=== PATIENT | male | born 1945 | race Caucasian/White ===

== ENCOUNTER 2023-05-23 09:11 | Emergency (ER) | payer MEDICARE, SELFPAY ==
[2023-05-23 09:12] VITALS: BP 137/80; PULSE 87; RESP 18; TEMP 35.8; O2SAT 96
[2023-05-23 09:28] VITALS: BMI 35.7
--- NOTE | 2023-05-23 10:00 | EDS_ITS ---
HPI <NERISSA Dinero - Last Filed: 05/23/23 10:33> History of Present Illness Chief Complaint: Fall Narrative Narrative: Patient was walking his dog in the yard and tripped on uneven ground landing on his right hip on May 19. He has had pain and bruising over the hip and the bruising is gradually spreading down the leg. He is able to ambulate and denies weakness numbness or tingling. He denies blood thinners. There was no head injury. He had a previous right hip replacement done in [place]. PFSH <ENRISSA Dinero - Last Filed: 05/23/23 10:33> PFSH Medical History (Updated 05/23/23 @ 10:30 by NERISSA Dinero) FH: bilateral hip replacements HTN (hypertension) Surgical History (Updated 05/23/23 @ 09:30 by Janae Parks) History of bilateral knee replacement Hx of cholecystectomy S/p bilateral shoulder joint replacement Social History Smoking Status: Never smoker ROS <NERISSA Dinero - Last Filed: 05/23/23 10:33> ROS ED ROS Narrative Neuro: Negative for motor/sensory dysfunction. Skin: Negative for wound. Musc: Positive for right hip pain, swelling, trauma. Heme: Negative for easy bruising, bleeding, lymphadenopathy. EXAM <NERISSA Dinero - Last Filed: 05/23/23 10:33> Physical Exam Narrative Exam Narrative: CONST: Patient sitting in no acute distress. EYES: Normal inspection. NECK: Normal inspection. RESP: No respiratory distress, CTAB. CVS: Regular rate and rhythm, no murmur, no gallop. Back: Normal inspection, no bruising, no midline spinal tenderness. SKIN: Color normal, no rash, warm, dry, intact. EXTREMITIES: Hematoma and tenderness over right greater trochanter with bruising extending down to the knee and very stages of healing. Full range of motion of the hip and lower extremity, no shortening or rotation, normal sensation and 2+ DP pulses. NEURO: Oriented x4. PSYCH: Normal affect. Const Vital Signs: 05/23/23 09:12 Temperature 96.5 F L Temperature Source Temporal Pulse Rate 87 Respiratory Rate 18 Blood Pressure 137/80 H Blood Pressure Mean 99 Pulse Ox 96 Oxygen Delivery Method Room Air <Dr. Arnulfo Crane DO - Last Filed: 05/23/23 13:00> Physical Exam Const Vital Signs: 05/23/23 09:12 Temperature 96.5 F L Temperature Source Temporal Pulse Rate 87 Respiratory Rate 18 Blood Pressure 137/80 H Blood Pressure Mean 99 Pulse Ox 96 Oxygen Delivery Method Room Air [facility] <NERISSA Dinero - Last Filed: 05/23/23 10:33> [facility] Narrative Medical decision making narrative: History gathered from patient and family members Patient had mechanical fall on 05/19 has bruising on his right hip. He was concerned that bruising is spreading down the leg which appears to be from gravity. He has tenderness over the hematoma over the greater trochanter but is able to move the hip without pain and is neurovascularly intact. X-ray shows prosthesis intact with no evidence of fracture. I discussed symptomatic care for the hematoma and normal course of healing and he was discharged in stable condition. 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 <Dr. Arnulfo Crane DO - Last Filed: 05/23/23 13:00> [facility] Narrative Medical decision making narrative: History gathered from patient and family members Patient had mechanical fall on 05/19 has bruising on his right hip. He was concerned that bruising is spreading down the leg which appears to be from g ravity. He has tenderness over the hematoma over the greater trochanter but is able to move the hip without pain and is neurovascularly intact. X-ray shows prosthesis intact with no evidence of fracture. I discussed symptomatic care for the hematoma and normal course of healing and he was discharged in stable condition. Differential: Hematoma, hip fracture This patient was seen with a PA/[employer] Individually assessed they patient including history and physical. I have reviewed everything on the chart that is available and agree with the documentation provided by the PA/C[employer] including discussion about the assessment, treatment plan, discussion, and return precautions. Patient with hematoma on the right hip with some dependent edema and erythema. Minimally painful to palpation. Full range of motion. Neurovascular intact. X-rays of the right hip on my interpretation show no evidence of fracture or subluxation. Patient counseled on treatment plan. Return precautions discussed. Stable for discharge at this time. 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 You have a hematoma or collection of bruising and swelling. You can massage the area to break it up and it will go away over the next several weeks. The bruising can extend down your leg from gravity. Disposition Disposition: Home, Self Care Discharge Date/Time: 05/23/23 10:35
--- NOTE | 2023-05-23 10:03 | RAD_ITS ---
STUDY: X-RAY - PELVIS AND RIGHT HIP REASON FOR EXAM: Male, 77 years old. Injury/Pain TECHNIQUE: 3 views of the pelvis and hip. COMPARISON: None. FINDINGS: There is a non-specific bowel gas pattern. Normal visualized soft tissue structures. Mild age consistent SI joint arthrosis.. Normal bilateral superior and inferior pubic rami. Normal pubic symphysis. Normal bilateral ischial tuberosities. Right hip has been previously replaced. Components demonstrate anatomic alignment. No plain film evidence of hardware complication, failure, or acute traumatic abnormality. 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
== END 2023-05-23 10:35 | disposition home or self-care (01) ==
PROVIDERS: Emergency Provider Student in an Organized Health Care Education/Training Program; PCP Family Medicine; Visit Provider Student in an Organized Health Care Education/Training Program
DX: S70.01XA Contusion of right hip, initial encounter (principal); Z96.643 Presence of artificial hip joint, bilateral; W01.0XXA Fall on same level from slipping, tripping and stumbling without subsequent striking against object, initial encounter; Y93.K1 Activity, walking an animal; I10 Essential (primary) hypertension
CPT/HCPCS: 73502; 99282